=== PATIENT | male | born 1980 | race African-American/Black ===

== ENCOUNTER 2024-10-15 07:12 | Emergency (ER) | payer OTHER ==
[~2024-10-15] VITALS: Ht 167.6 cm; Wt 79.8 kg
[2024-10-15] MEDS ORDERED: PIPERACILLIN/TAZOBACTAM 3.375 GM VIAL ONE (09:21)
[2024-10-15] MEDS ORDERED: KETOROLAC TROMETHAMINE 30 MG/ML VIAL ONE (09:21)
[2024-10-15] MEDS ORDERED: KETOROLAC TROMETHAMINE 30 MG/ML VIAL IV ONE (09:30)
[2024-10-15] MEDS: ACETAMINOPHEN 325 MG TAB PO ONE (09:40)
[2024-10-15] MEDS: KETOROLAC TROMETHAMINE 30 MG/ML VIAL IV ONE (09:40)
[2024-10-15] MEDS: SODIUM CHLORIDE 0.9% 500ML 500 ML IV STA (09:41)
[2024-10-15] MEDS ORDERED: TYLENOL325 MG PO (09:42)
[2024-10-15] MEDS ORDERED: PROBIOTIC & AC1 EACH PO (09:42)
[2024-10-15] MEDS ORDERED: CEFDINIR300 MG PO (09:42)
[2024-10-15] MEDS ORDERED: IBUPROFEN200 MG PO (09:42)
[2024-10-15] MEDS ORDERED: BACTRIM 400-801 EACH PO (09:42)
[2024-10-15 11:06] VITALS: PULSE 76; RESP 18; TEMP 98.3; O2SAT 100
== END 2024-10-15 11:08 | disposition home or self-care (01) ==
LOC: FSED 07:22
DX: N50.811 Right testicular pain (principal); N49.2 Inflammatory disorders of scrotum; R51.9 Headache, unspecified; R68.84 Jaw pain; K08.89 Other specified disorders of teeth and supporting structures
CPT/HCPCS: 76870; 80053; 81003; 85025; 87040; 87086; 87186; 99284; J1885; J2543; J7040